=== PATIENT | female | born 1995 | race Caucasian/White ===

== ENCOUNTER → 2024-01-27 | Outpatient (CLI) | payer OTHER ==
--- NOTE | 2024-01-28 00:18 | US ---
EXAMINATION TYPE: US renal artery duplex complet DATE OF EXAM: 01/27/2024 COMPARISON: NONE CLINICAL INDICATION: Female, 28 years old with history of I10 ESSENTIAL (PRIMARY) HYPERTENSION; HTN i s controlled. MEASUREMENTS: RENAL SIZE: Right Kidney: 11.1 x 4.1 x 4.4 cm Left Kidney: 11 x 4.6 x 4.1 cm Anechoic area, compatible with simple cyst lower pole 2.1 x 2.5 x 2.2 cm. Right Kidney: No hydronephrosis or lesions seen Left Kidney: No hydronephrosis or lesions seen Abd Aorta: wnl RESISTANCE INDEX Right: .6 Left: .5 RA/AO RATIO (< 3.5 ) Right: 0.8 Left: 0.9 RENAL ARTERY VELOCITY ( < 180 cm/s) Right: 112.1 Left: 116.1 Policy Value Calculator Notes: IMPRESSION: 1. No suspicious changes to suggest significant flow-limiting stenosis.
== END | disposition home or self-care (01) ==
LOC: RADUSWWP 07:17
PROVIDERS: ATTEND Family Medicine
DX: I10 Essential (primary) hypertension (principal)
CPT/HCPCS: 93975